=== PATIENT | female | born 1970 | race Caucasian/White ===

== ENCOUNTER 2019-07-01 09:17 | Inpatient (IN) ==
[2019-07-01] MEDS ORDERED: Naloxone 0.4 MG/ML INJ IVP PRN (12:12)
[2019-07-01] MEDS ORDERED: *HR* Heparin 5,000 UNIT/ML VIAL IVP PRN ×2 (12:14)
[2019-07-01] MEDS: Heparin 25,000 UNIT/250 ML D5W 25,000 UNIT/250 ML IV.SOLN IVC SCH (14:30)
[2019-07-01] MEDS ORDERED: Perflutren Lipid Microsphere 1.3 ML in 0.9 % Sodium Chloride 8.7 ML IVP ONE (16:18)
[2019-07-01] MEDS ORDERED: Dextrose Gel 15 GM/37.5 ML TUBE PO PRN ×2 (16:49)
[2019-07-01] MEDS ORDERED: *HR* Dextrose 50 % in Water (Syg) 50 ML SYRINGE IVP PRN (16:49)
[2019-07-01] MEDS ORDERED: D5% in Water 1,000 ML IVC PRN (16:49)
[2019-07-01] MEDS: carvediloL 6.25 MG TABLET PO SCH (18:57)
[2019-07-01] MEDS: Insulin LISPRO 300 UNITS/3 ML VIAL SQ SCH ×2 (18:57→22:31)
[2019-07-01] MEDS: Acetaminophen 325 MG TABLET PO PRN (18:58)
[2019-07-02 05:51] LABS: Basophils # 0.1 K/mcL (0.0-0.2); Basophils % 0.9 %; Eosinophils # 0.4 K/mcL (0.0-0.6); Eosinophils % 7.1 %; Hematocrit 42.6 % (35.3-44.9); Hemoglobin 13.9 g/dL (11.5-15.4); Immature Granulocytes % 0.3 % (0-4); Lymphocytes # 2.6 K/mcL (0.6-4.6); Lymphocytes % 44.3 %; Mean Corpuscular HGB Conc 32.6 g/dL (31.6-35.5); Mean Corpuscular Hemoglobin 26.6 pg (28.0-33.3); Mean Corpuscular Volume 81.6 fL (83.0-100.0); Mean Platelet Volume 10.6 fL (9.4-12.4); Monocytes # 0.5 K/mcL (0.0-1.3); Monocytes % 9.2 %; Neutrophils # 2.2 K/mcL (1.6-8.9); Platelet Count 202 K/mcL (140-400); Red Blood Count 5.22 M/mcL (3.82-4.97); Red Cell Distribution Width 14.6 % (11.5-14.5); Segmented Neutrophils % 38.2 %; White Blood Count 5.8 K/mcL (4.3-11.1)
[2019-07-02 06:03] LABS: BUN/Creatinine Ratio 23 (6-26); Blood Urea Nitrogen 13 mg/dL (6-20); Carbon Dioxide 27 mEq/L (23-29); Chloride 97 mEq/L (98-107); Chol/HDL Ratio 6.9 (0-4.9); Glucose 161 mg/dL (70-105); Osmolality,Calculated 284 (280-300); Potassium 3.8 mEq/L (3.5-5.1); Sodium 135 mEq/L (136-145); eGFR For African Americans > 60 (> 60); eGFR For Non-African Americans > 60 (> 60)
[2019-07-02] MEDS: Heparin 25,000 UNIT/250 ML D5W 25,000 UNIT/250 ML IV.SOLN IVC SCH ×2 (07:33→22:34)
[2019-07-02] MEDS: Insulin LISPRO 300 UNITS/3 ML VIAL SQ SCH ×4 (08:49→21:01)
[2019-07-02] MEDS: Acetaminophen 325 MG TABLET PO PRN (08:50)
[2019-07-02] MEDS: carvediloL 6.25 MG TABLET PO SCH ×2 (08:50→16:42)
[2019-07-02] MEDS: Aspirin Enteric Coated 81 MG Tablet PO SCH (08:50)
[2019-07-02 13:43] LABS: Estimated Average Glucose 217 mg/dl
[2019-07-02] MEDS: Insulin DETEMIR 100 UNIT/ML X5UNITS SQ SCH (21:06)
[2019-07-03] MEDS: carvediloL 6.25 MG TABLET PO SCH ×2 (07:39→17:25)
[2019-07-03] MEDS: Aspirin Enteric Coated 81 MG Tablet PO SCH (07:39)
[2019-07-03 07:45] LABS: Basophils # 0.1 K/mcL (0.0-0.2); Eosinophils # 0.4 K/mcL (0.0-0.6); Hematocrit 46.2 % (35.3-44.9); Hemoglobin 14.7 g/dL (11.5-15.4); Immature Granulocytes % 0.1 % (0-4); Lymphocytes # 2.7 K/mcL (0.6-4.6); Lymphocytes % 39.1 %; Mean Corpuscular HGB Conc 31.8 g/dL (31.6-35.5); Mean Corpuscular Hemoglobin 27.2 pg (28.0-33.3); Mean Corpuscular Volume 85.4 fL (83.0-100.0); Monocytes # 0.5 K/mcL (0.0-1.3); Monocytes % 6.7 %; Neutrophils # 3.2 K/mcL (1.6-8.9); Platelet Count 230 K/mcL (140-400); Red Blood Count 5.41 M/mcL (3.82-4.97); Red Cell Distribution Width 14.6 % (11.5-14.5); Segmented Neutrophils % 47.1 %; White Blood Count 6.9 K/mcL (4.3-11.1)
[2019-07-03 08:00] LABS: BUN/Creatinine Ratio 23 (6-26); Blood Urea Nitrogen 14 mg/dL (6-20); Calcium 9.3 mg/dL (8.6-10.3); Carbon Dioxide 27 mEq/L (23-29); Chloride 97 mEq/L (98-107); Glucose 158 mg/dL (70-105); Osmolality,Calculated 284 (280-300); Potassium 4.2 mEq/L (3.5-5.1); Sodium 135 mEq/L (136-145); eGFR For African Americans > 60 (> 60); eGFR For Non-African Americans > 60 (> 60)
[2019-07-03] MEDS: Insulin LISPRO 300 UNITS/3 ML VIAL SQ SCH ×4 (08:02→20:58)
[2019-07-03] MEDS: Acetaminophen 325 MG TABLET PO PRN ×2 (12:28→21:01)
[2019-07-03] MEDS: Nicotine 7 MG PATCH.TD24 TD SCH (17:25)
[2019-07-03] MEDS: Heparin 25,000 UNIT/250 ML D5W 25,000 UNIT/250 ML IV.SOLN IVC SCH (19:45)
[2019-07-03] MEDS: Insulin DETEMIR 100 UNIT/ML X5UNITS SQ SCH (20:58)
[2019-07-04] MEDS: Heparin 25,000 UNIT/250 ML D5W 25,000 UNIT/250 ML IV.SOLN IVC SCH (05:50)
[2019-07-04] MEDS ORDERED: 0.9 % Sodium Chloride 2,000 ML ONE (07:53)
[2019-07-04] MEDS ORDERED: Heparin 1,000 UNITS/500 mL 500 ML ONE (07:54)
[2019-07-04] MEDS ORDERED: *HR* Heparin 10,000 UNIT/10 ML VIAL ONE (07:54)
[2019-07-04] MEDS ORDERED: Nitroglycerin 1,000 MCG/10 ML VIAL IV ONE (07:54)
[2019-07-04] MEDS ORDERED: ISOVUE-370 200 ML INFUS..BTL ONE (07:54)
[2019-07-04] MEDS ORDERED: Verapamil 5 MG/2 ML VIAL ONE (08:26)
[2019-07-04] MEDS ORDERED: *HR* Midazolam HCl 2 MG/2 ML VIAL ONE ×2 (08:46→09:05)
[2019-07-04] MEDS ORDERED: *HR* FentaNYL (PF) 100 MCG/2 ML VIAL ONE (08:46)
[2019-07-04] MEDS: Insulin LISPRO 300 UNITS/3 ML VIAL SQ SCH ×2 (10:04→12:14)
[2019-07-04] MEDS: carvediloL 6.25 MG TABLET PO SCH (10:07)
[2019-07-04] MEDS: Aspirin Enteric Coated 81 MG Tablet PO SCH (10:07)
[2019-07-04] MEDS: Nicotine 7 MG PATCH.TD24 TD SCH (10:07)
[2019-07-04] MEDS: Acetaminophen 325 MG TABLET PO PRN (10:07)
[2019-07-04 12:17] VITALS: BP 108/59
== END 2019-07-04 12:33 | disposition home or self-care (01) | DRG 282 ==
LOC: 2ANU → SUATTDRO 12:12
PROVIDERS: ADMIT Internal Medicine; ATTEND Internal Medicine